=== PATIENT | male | born 1930 | race Caucasian/White ===

== ENCOUNTER → 2017-11-05 | Outpatient (CLI) | payer BC ==
[~2017-11-05] MED LIST: AMLO5 PO; ASPI325 PO; ASPI81EC PO; BENA20 PO; BENAML20/5; CALCAVITD PO; CARV6.25 PO; CHOL10002 PO; CLOP75 PO; CYAN1000I; CYAN1000I IM; ERGO400 PO; FAMO20; Ferrous Sulfat324 MG PO; HYDCHL12.5; LEVFLO500 PO; LISI5 PO; LYCOPENE; LYCOPENE PO; MULVITMINF; MULVITMINF PO; OMEP10ER PO; POLY500 PO; VIT1CAPS12; VIT1CAPS12 PO; XARELTO20 MG PO; [UNRECOGNIZED DRUG - OTHER]
[2017-11-05 11:52] LABS: BASOPHILS ABSOLUTE AUTO 0.06 K/mm3 (0.00-0.23); BASOPHILS PERCENT AUTO 1 % (0-2); EOSINOPHILS ABSOLUTE AUTO 0.23 K/mm3 (0.00-0.68); EOSINOPHILS PERCENT AUTO 3 % (0-6); Hemoglobin 13.6 g/dL (13.5-17.5); IMMATURE GRAN ABSOLUTE AUTO 0.05 K/mm3 (0.00-0.10); IMMATURE GRAN PERCENT AUTO 1 % (0-1); LYMPHOCYTES ABSOLUTE AUTO 1.62 K/mm3 (0.84-5.20); LYMPHOCYTES PERCENT AUTO 24 % (21-46); MONOCYTES ABSOLUTE AUTO 0.85 K/mm3 (0.16-1.47); MONOCYTES PERCENT AUTO 12 % (4-13); Mean Corpuscular HGB 35.1 pg (26.0-34.0); Mean Corpuscular HGB Conc 34.9 g/dL (31.5-36.5); Mean Corpuscular Volume 101 fL (80-100); Mean Platelet Volume 9.3 fL (9.1-12.4); NEUTROPHILS ABSOLUTE AUTO 4.05 K/mm3 (1.96-9.15); NEUTROPHILS PERCENT AUTO 59 % (41-73); Platelet Count 150 K/mm3 (150-400); RDW Coefficient Variation 13.3 % (11.7-14.2); RDW Standard Deviation 49.4 fL (35.1-46.3); Red Blood Cell Count 3.87 M/mm3 (4.30-5.90); White Blood Cell Count 6.86 K/mm3 (4.00-11.30)
[2017-11-05 12:05] LABS: Anion Gap 10 mmol/L (6-16); Blood Urea Nitrogen 30 mg/dL (8-24); Bun/Creatinine Ratio 23.8 (12.0-20.0); CO2, Blood 27 mmol/L (21-32); Calcium, Blood 9.4 mg/dL (8.5-10.1); Chloride, Blood 101 mmol/L (98-108); Creatinine, Blood 1.26 mg/dL (0.60-1.20); Glomerular Filtration Rate 54 (60-); Glucose, Blood 144 mg/dL (70-99); Potassium, Blood 4.6 mmol/L (3.5-5.5); Sodium, Blood 138 mmol/L (136-145)
[2017-11-05 12:06] LABS: Troponin I <0.017 ng/mL (0.000-0.040)
== END | disposition home or self-care (01) ==
LOC: LAB SHORT 11:48 → LAB EV 11:48
PROVIDERS: Family Medicine
DX: R55 Syncope and collapse (principal)
CPT/HCPCS: 80048; 84484; 85025

== ENCOUNTER → 2018-02-27 | Outpatient (CLI) | payer BC ==
[~2018-02-27] MED LIST changes: +BUDE6HFA INH; +CARV3.125; +PANT20
== END | disposition home or self-care (01) ==
LOC: EDSTATUS 10:53 → LAB RH 15:30
PROVIDERS: Hospitalist
DX: N39.0 Urinary tract infection, site not specified (principal)
CPT/HCPCS: 81001

== ENCOUNTER 2018-04-06 13:56 | Emergency (ER) | payer BC ==
[~2018-04-06] VITALS: Ht 177.8 cm; Wt 68.0 kg
[2018-04-06] MEDS ORDERED: CARV6.25 PO (14:07)
== END 2018-04-06 16:25 | disposition home or self-care (01) ==
LOC: ER 13:56
DX: S40.011A Contusion of right shoulder, initial encounter (principal); M25.461 Effusion, right knee; W01.198A Fall on same level from slipping, tripping and stumbling with subsequent striking against other object, initial encounter; Z88.8 Allergy status to other drugs, medicaments and biological substances; Z88.0 Allergy status to penicillin; Z88.2 Allergy status to sulfonamides; Z88.1 Allergy status to other antibiotic agents; Z86.73 Personal history of transient ischemic attack (TIA), and cerebral infarction without residual deficits; E11.22 Type 2 diabetes mellitus with diabetic chronic kidney disease; I12.9 Hypertensive chronic kidney disease with stage 1 through stage 4 chronic kidney disease, or unspecified chronic kidney disease; N18.9 Chronic kidney disease, unspecified; Z87.891 Personal history of nicotine dependence
CPT/HCPCS: 73030; 73562-RT; 99283-25

== ENCOUNTER 2019-01-23 11:16 | Inpatient (IN) | payer OTHER, BC ==
[~2019-01-23] VITALS: Ht 175.3 cm; Wt 90.7 kg
[2019-01-23 11:35] LABS: Calcium, Ionized (POC) 1.16 mmol/L (1.10-1.46); Chloride (POC) 106 mmol/L (98-108); Creatinine (POC) 1.1 mg/dL (0.8-1.3); Glucose (ISTAT POC) 210 mg/dL (70-99); Hemoglobin (POC) 15.3 g/dL (13.5-17.5); Potassium (POC) 4.5 mmol/L (3.5-5.5); Sodium (POC) 138 mmol/L (135-148); Total CO2 (POC) 25 mmol/L (21-32)
[2019-01-23 11:39] LABS: BASOPHILS ABSOLUTE AUTO 0.04 K/mm3 (0.00-0.23); BASOPHILS PERCENT AUTO 0 % (0-2); EOSINOPHILS ABSOLUTE AUTO 0.01 K/mm3 (0.00-0.68); EOSINOPHILS PERCENT AUTO 0 % (0-6); Hematocrit 43.5 % (37.0-53.0); Hemoglobin 14.7 g/dL (13.5-17.5); IMMATURE GRAN ABSOLUTE AUTO 0.09 K/mm3 (0.00-0.10); IMMATURE GRAN PERCENT AUTO 1 % (0-1); LYMPHOCYTES ABSOLUTE AUTO 1.04 K/mm3 (0.84-5.20); LYMPHOCYTES PERCENT AUTO 7 % (21-46); MONOCYTES ABSOLUTE AUTO 1.23 K/mm3 (0.16-1.47); MONOCYTES PERCENT AUTO 8 % (4-13); Mean Corpuscular HGB Conc 33.8 g/dL (31.5-36.5); Mean Corpuscular Volume 101 fL (80-100); Mean Platelet Volume 9.5 fL (9.1-12.4); NEUTROPHILS PERCENT AUTO 84 % (41-73); Platelet Count 163 K/mm3 (150-400); RDW Coefficient Variation 12.5 % (11.7-14.2); RDW Standard Deviation 46.8 fL (35.1-46.3); Red Blood Cell Count 4.32 M/mm3 (4.30-5.90); White Blood Cell Count 15.41 K/mm3 (4.00-11.30)
[2019-01-23 11:59] LABS: Alanine Aminotransfer (ALT/SGP 106 U/L (12-78); Albumin, Blood 3.9 g/dL (3.4-5.0); Alk Phos 148 U/L (50-136); Anion Gap 9 mmol/L (6-16); Aspartate Aminotrans (AST/SGOT 39 U/L (12-37); Bilirubin, Total 0.6 mg/dL (0.1-1.0); Blood Urea Nitrogen 22 mg/dL (8-24); Bun/Creatinine Ratio 20.6 (12.0-20.0); CO2, Blood 23 mmol/L (21-32); Chloride, Blood 106 mmol/L (98-108); Creatinine, Blood 1.07 mg/dL (0.60-1.20); Globulin, Blood 3.9 g/dL (2.2-4.0); Glomerular Filtration Rate >60 (60-); Glucose, Blood 204 mg/dL (70-99); Potassium, Blood 4.4 mmol/L (3.5-5.5); Sodium, Blood 138 mmol/L (136-145); Total Protein, Blood 7.8 g/dL (6.4-8.2); Troponin I 0.023 ng/mL (0.000-0.040)
[2019-01-23 14:04] LABS: Source, Urine Clean Catch
[2019-01-23 14:11] LABS: Bilirubin, Urine Neg (Neg); Blood, Urine 3+ (Neg); Glucose Qualitative, Urine Neg (Neg); Ketones, Urine Neg (Neg); Leukocyte Esterase, Urine Neg (Neg); Nitrite, Urine Neg (Neg); Protein, Urine Neg (Neg); Urobilinogen, Urine NORM (Normal)
[2019-01-23 14:26] LABS: U Amphetamine Screen Not Detected; U Barbituate Screen Not Detected; U Benzodiazapine Screen Not Detected; U Buprenorphine Screen Not Detected; U Cannabinoids Screen Not Detected; U Cocaine Screen Not Detected; U Methadone Screen Not Detected; U Methamphetamine Screen Not Detected; U Opiates Screen Not Detected; U Oxycodone Screen Not Detected; U Phencyclidine Screen Not Detected; U Propoxyphene Screen Not Detected
[2019-01-23 14:45] LABS: Appearance, Urine Hazy (Clear); Color, Urine Yellow (P-Yellow)
[2019-01-23 14:51] LABS: Red Blood Cells, Urine 0-2 /hpf (0-2); Squamous Epithelial Cells Not Seen /hpf (Few); White Blood Cells, Urine Not Seen /hpf (0-5)
[2019-01-23 14:52] LABS: Bacteria Rare /hpf; Uric Acid Crystals Many /hpf
[2019-01-23] MEDS ORDERED: POTA10T PO (14:58)
[2019-01-23] MEDS ORDERED: FUROSEMIDE20 MG PO (14:58)
[2019-01-23] MEDS ORDERED: BUDE10.22 INH (14:58)
[2019-01-23] MEDS ORDERED: CARVEDILOL12.5 MG PO (14:58)
[2019-01-23] MEDS ORDERED: OMEP20ER PO (14:59)
[2019-01-23] MEDS ORDERED: NEURONTIN300 MG PO (14:59)
--- NOTE | 2019-01-23 19:41 | NUR ---
SHIFT SUMMARY: PATIENT ADMIT FROM ED THIS SHIFT. PT HAS ALTERED MENTAL STATUS; A&O X0. HX CVA; R SIDE WEAK. IV REHYDRATION CONTINUING. MRI OF HEAD SCHEDULED FOR WEDNESDAY 01/24. REPORT GIVEN TO ONCOMING RN.
--- NOTE | 2019-01-24 04:27 | NUR ---
SHIFT SUMMARY: 88 Y/O MALE RESTED COMFORTABLY ALL SHIFT, ALERT TO PERSON ONLY, IMPULSIVE AT TIMES WHILE SITTING UP AT SIDE OF BED TO VOID PER URINAL WHILE WEARING ATTENDS DIAPERS, DENIES PAIN OR NAUSEA, MEDICATIONS ARE CURRENTLY NOT RECONCILED PATIENT DOES NOT KNOW ANY OF THEM DUE TO CURRENT MENTAL STATE, BED ALARM APPLIED, BED LOW POSITION WITH CALL LIGHT AT SIDE.
--- NOTE | 2019-01-24 04:34 | NUR ---
01/23/191929 THIS NURSE RECEIVED TELEPHONE CALL FROM FEMALE WHOM IDENTIFIED HERSELF LUCIANA CHAMBERS, PRIMARY CAREGIVER FOR PATIENT, THIS NURSE CONFIRMED PATIENT WAS HERE AND REPLIED THAT DUE TO HIPPA LAWS WAS UNABLE TO PROVIDE ANY MORE INFORMATION AT THIS TIME. LUCIANA DID PROVIDE CONTACT NUMBER AT [phone] TO CONTACT FOR ANY QUESTIONS. 2014 THIS NURSE RECEIVED ANOTHER TELEPHONE CALL FROM MALE WHOM IDENTIFIED HIMSELF FLORENCIA CORCORAN AND DESIRING INFORMATION. THIS NURSE AGAIN CONFIRMED PATIENT HOSPITALIZED HERE AND REPLIED THAT DUE TO HIPPA LAWS THAT NO FURTHER INFORMATION COULD BE PROVIDED AT THIS TIME WITH ACKNOWLEDGEMENT NOTED.
[2019-01-24 05:43] LABS: BASOPHILS ABSOLUTE AUTO 0.06 K/mm3 (0.00-0.23); BASOPHILS PERCENT AUTO 1 % (0-2); EOSINOPHILS ABSOLUTE AUTO 0.09 K/mm3 (0.00-0.68); EOSINOPHILS PERCENT AUTO 1 % (0-6); Hematocrit 40.6 % (37.0-53.0); Hemoglobin 13.5 g/dL (13.5-17.5); IMMATURE GRAN ABSOLUTE AUTO 0.03 K/mm3 (0.00-0.10); IMMATURE GRAN PERCENT AUTO 0 % (0-1); LYMPHOCYTES ABSOLUTE AUTO 1.35 K/mm3 (0.84-5.20); LYMPHOCYTES PERCENT AUTO 13 % (21-46); MONOCYTES PERCENT AUTO 10 % (4-13); Mean Corpuscular HGB 32.9 pg (26.0-34.0); Mean Corpuscular HGB Conc 33.3 g/dL (31.5-36.5); Mean Corpuscular Volume 99 fL (80-100); Mean Platelet Volume 9.7 fL (9.1-12.4); NEUTROPHILS ABSOLUTE AUTO 7.75 K/mm3 (1.96-9.15); NEUTROPHILS PERCENT AUTO 75 % (41-73); Platelet Count 156 K/mm3 (150-400); RDW Coefficient Variation 12.7 % (11.7-14.2); RDW Standard Deviation 45.8 fL (35.1-46.3); White Blood Cell Count 10.28 K/mm3 (4.00-11.30)
[2019-01-24 06:08] LABS: Alanine Aminotransfer (ALT/SGP 79 U/L (12-78); Albumin, Blood 3.5 g/dL (3.4-5.0); Albumin/Globulin Ratio 1.1 (0.8-1.8); Alk Phos 127 U/L (50-136); Anion Gap 7 mmol/L (6-16); Aspartate Aminotrans (AST/SGOT 46 U/L (12-37); Bilirubin, Total 1.1 mg/dL (0.1-1.0); Blood Urea Nitrogen 18 mg/dL (8-24); Bun/Creatinine Ratio 17.1 (12.0-20.0); CO2, Blood 26 mmol/L (21-32); Calcium, Blood 8.9 mg/dL (8.5-10.1); Chloride, Blood 106 mmol/L (98-108); Creatinine, Blood 1.05 mg/dL (0.60-1.20); Globulin, Blood 3.2 g/dL (2.2-4.0); Glomerular Filtration Rate >60 (60-); Glucose, Blood 167 mg/dL (70-99); Potassium, Blood 4.2 mmol/L (3.5-5.5); Sodium, Blood 139 mmol/L (136-145); Total Protein, Blood 6.7 g/dL (6.4-8.2)
[2019-01-24 06:09] LABS: Troponin I 0.037 ng/mL (0.000-0.040)
[2019-01-24] MEDS ORDERED: XARELTO20 MG PO (08:52)
--- NOTE | 2019-01-24 17:09 | NUR ---
SUMMARY PT SITTING UP IN BED VISITING WITH THE CUT PLUG PACKER, PT HAS BEEN PLEASANT AND COOPERATIVE WITH CARE T/O THE DAY, ALERT AND ORIENTED, SLIGHTLY FORGETFUL, REORIENTS EASILY, UP WITH 1P ASSIST, NO COMPLAINTS, VSS, NO ACUTE CHANGES, WILL CONT TO MONITOR
[2019-01-25 05:08] LABS: BASOPHILS ABSOLUTE AUTO 0.05 K/mm3 (0.00-0.23); BASOPHILS PERCENT AUTO 1 % (0-2); EOSINOPHILS ABSOLUTE AUTO 0.28 K/mm3 (0.00-0.68); EOSINOPHILS PERCENT AUTO 4 % (0-6); Hematocrit 38.3 % (37.0-53.0); Hemoglobin 12.8 g/dL (13.5-17.5); IMMATURE GRAN ABSOLUTE AUTO 0.03 K/mm3 (0.00-0.10); IMMATURE GRAN PERCENT AUTO 0 % (0-1); LYMPHOCYTES ABSOLUTE AUTO 1.42 K/mm3 (0.84-5.20); LYMPHOCYTES PERCENT AUTO 21 % (21-46); MONOCYTES ABSOLUTE AUTO 0.81 K/mm3 (0.16-1.47); MONOCYTES PERCENT AUTO 12 % (4-13); Mean Corpuscular HGB Conc 33.4 g/dL (31.5-36.5); Mean Corpuscular Volume 102 fL (80-100); Mean Platelet Volume 9.9 fL (9.1-12.4); NEUTROPHILS PERCENT AUTO 62 % (41-73); Platelet Count 135 K/mm3 (150-400); RDW Coefficient Variation 12.7 % (11.7-14.2); RDW Standard Deviation 47.9 fL (35.1-46.3); Red Blood Cell Count 3.76 M/mm3 (4.30-5.90); White Blood Cell Count 6.79 K/mm3 (4.00-11.30)
--- NOTE | 2019-01-25 05:15 | NUR ---
SUMMARY: A/OX4, MILDLY FORGETFULL AT TIMES W/BED ALARM ON AND SPECIFIES NEEDS WHEN STAFF IN ROOM. HE'S COOPERATIVE W/CARE, IS SBA W/FWW IN ROOM AND REPOSITIONS SELF IN BED. PT USES URINAL W/ASSIST AT EOB. IV ABX WERE RECIEVED THEN PT SL. CAROTID U/S WAS COMPLETED THIS SHIFT BUT TECH HELD OFF ON RUQ U/S SINCE PT HAD RECENT ABDO CT, WILL DISCUSS ORDER CLARIFICATION OF NEED W/DAY RN. PT DENIED PAIN/COMPLAINTS. VSS/AFEBRILE, NO ACUTE CHANGES. WCTM AND REPORT TO DAY RN.
[2019-01-25 05:25] LABS: Alanine Aminotransfer (ALT/SGP 72 U/L (12-78); Albumin, Blood 3.1 g/dL (3.4-5.0); Albumin/Globulin Ratio 0.9 (0.8-1.8); Alk Phos 121 U/L (50-136); Anion Gap 8 mmol/L (6-16); Aspartate Aminotrans (AST/SGOT 49 U/L (12-37); Bilirubin, Total 0.8 mg/dL (0.1-1.0); Blood Urea Nitrogen 25 mg/dL (8-24); CO2, Blood 25 mmol/L (21-32); Chloride, Blood 108 mmol/L (98-108); Creatinine, Blood 1.19 mg/dL (0.60-1.20); Globulin, Blood 3.3 g/dL (2.2-4.0); Glomerular Filtration Rate >60 (60-); Glucose, Blood 130 mg/dL (70-99); Potassium, Blood 4.3 mmol/L (3.5-5.5); Sodium, Blood 141 mmol/L (136-145); Total Protein, Blood 6.4 g/dL (6.4-8.2)
[2019-01-25] MEDS ORDERED: ACET325 PO (12:53)
[2019-01-25] MEDS ORDERED: ASPI81CH PO (12:54)
--- NOTE | 2019-01-25 15:44 | NUR ---
SHIFT SUMMARY: PT IS A/O X 4 WITH FORGETFULNESS BUT HE IS AWARE OF THIS AND SAYS HIS CAREGIVER HELPS HIM REMEMBER THINGS. HE IS VERY PLEASANT AND COOPERATIVE WITH HIS CARE. PT USES THE URINAL AT THE BEDSIDE. PT/OT WORKED WITH THE PT TODAY AND HE WAS ABLE TO WALK WELL WITH A FWW AND STAND BY ASSIST. DR BLACKWELL WROTE ORDERS TO DC HOME WITH CAREGIVER AND SOON SHE ARRIVES HIS INSTRUCTIONS WILL BE REVIEWED WITH HIM AND HIS CAREGIVER. HE IS ABLE TO MAKE HIS NEEDS KNOWN AND CALLS APPROPRIATELY FOR HELP.
--- NOTE | 2019-01-25 16:20 | NUR ---
PT DCD HOME WITH CAREGIVER. ALL RX AND INSTRUCTIONS WERE REVIEWED WITH PT AND CAREGIVER. RX FAXED TO [facility] PER PT REQUEST. IV REMOVED WITH NO ISSUE. PT WAS REMINDED THAT DR BLACKWELL GAVE ORDERS FOR NO DRIVING AND HE STATES HE IS OK WITH THIS. ALL PERSONAL BELONGINGS WERE SENT WITH PT. PT STABLE UPON DC.
== END 2019-01-25 16:35 | disposition home or self-care (01) | DRG 69 ==
LOC: ER 11:16 → ERHOLD 11:17 → MEDS 17:13
PROVIDERS: Emergency Medicine; Family Medicine; ADMIT Internal Medicine Endocrinology, Diabetes & Metabolism
DX: G45.9 Transient cerebral ischemic attack, unspecified (principal); K83.1 Obstruction of bile duct; N18.3 Chronic kidney disease, stage 3 (moderate); H35.30 Unspecified macular degeneration; Z90.3 Acquired absence of stomach [part of]; Z66 Do not resuscitate; R56.9 Unspecified convulsions; Z79.82 Long term (current) use of aspirin
CPT/HCPCS: 36415; 70450; 70551; 71045; 74177; 76705; 80047; 80053; 81001; 84484; 85014; 85025; 93005; 93010; 93880; 97116; 97161; 97165; 97530; 99285-25; J1644; J1956; Q9967